=== PATIENT | male | born 1950 | race Caucasian/White ===

== ENCOUNTER 2025-01-08 13:45 | Outpatient (RCR) | payer MEDICARE, SELFPAY | END 2025-01-08 23:59 | disposition home or self-care (01) | LOC: CRHB 13:45 | PROVIDERS: ATTENDING PHYSICIAN Internal Medicine Cardiovascular Disease | DX: Z95.1 Presence of aortocoronary bypass graft (principal) | CPT/HCPCS: G0422; G0423 ==

== ENCOUNTER 2025-02-07 14:03 | Outpatient (RCR) | payer MEDICARE, SELFPAY | END 2025-02-07 23:59 | disposition home or self-care (01) | LOC: CRHB 14:03 | PROVIDERS: ATTENDING PHYSICIAN Internal Medicine Cardiovascular Disease; FAMILY PHYSICIAN Family Medicine | DX: I25.10 Atherosclerotic heart disease of native coronary artery without angina pectoris (principal); Z95.1 Presence of aortocoronary bypass graft | CPT/HCPCS: G0422; G0423 ==

== ENCOUNTER 2025-03-07 16:17 | Outpatient (RCR) | payer MEDICARE, SELFPAY | END 2025-03-07 23:59 | disposition home or self-care (01) | LOC: CRHB 16:17 | PROVIDERS: ATTENDING PHYSICIAN Internal Medicine Cardiovascular Disease; FAMILY PHYSICIAN Family Medicine | DX: I25.10 Atherosclerotic heart disease of native coronary artery without angina pectoris (principal); Z95.1 Presence of aortocoronary bypass graft (principal) | CPT/HCPCS: G0422; G0423 ==

== ENCOUNTER 2025-04-02 13:34 | Outpatient (RCR) | payer MEDICARE, SELFPAY ==
[2025-04-01 11:37] LABS: HDL Cholesterol 41 mg/dl; LDL Cholesterol, Calculated 44 mg/dl; Very Low Density Lipoprotein 24 mg/dl (0-30)
== END 2025-04-02 13:40 | disposition home or self-care (01) ==
LOC: CRHB 13:34
PROVIDERS: ATTENDING PHYSICIAN Internal Medicine Cardiovascular Disease; FAMILY PHYSICIAN Family Medicine
DX: I25.10 Atherosclerotic heart disease of native coronary artery without angina pectoris (principal); Z95.1 Presence of aortocoronary bypass graft
CPT/HCPCS: 36415; 80061; G0422; G0423